=== PATIENT | female | born 1940 | race Two or more races ===

== ENCOUNTER 2017-04-17 13:17 | Emergency (ER) | payer OTHER ==
[~2017-04-17] VITALS: Ht 152.4 cm; Wt 54.0 kg
[2017-04-17] MEDS ORDERED: VERAPAMIL HCL40 MG (13:31)
[2017-04-17] MEDS ORDERED: SYNTHROID50 MCG (13:31)
[2017-04-17] MEDS ORDERED: COZAAR25 MG (13:40)
[2017-04-17] MEDS ORDERED: CALCIUM500 M1 (13:41)
== END 2017-04-17 15:32 | disposition home or self-care (01) ==
LOC: ER 13:17
DX: S91.322A Laceration with foreign body, left foot, initial encounter (principal); W26.8XXA Contact with other sharp object(s), not elsewhere classified, initial encounter; Y93.89 Activity, other specified; Y92.89 Other specified places as the place of occurrence of the external cause; Y99.8 Other external cause status